=== PATIENT | male | born 1990 | race African-American/Black ===

== ENCOUNTER 2019-04-05 14:39 | Emergency (ER) | payer MEDICAID ==
[~2019-04-05] VITALS: Ht 180.3 cm; Wt 111.0 kg
[2019-04-05 14:42] VITALS: BP 123/79
--- NOTE | 2019-04-05 16:04 | NUR ---
AFTER PA EXAM AND TX, DISCHARGE PAPERS GIVEN
== END 2019-04-05 16:06 | disposition home or self-care (01) ==
LOC: ED 16:00
DX: L02.412 Cutaneous abscess of left axilla (principal)
CPT/HCPCS: 10060; 10160; 99283; 99284

== ENCOUNTER 2020-05-24 16:50 | Emergency (ER) | payer MEDICAID ==
[~2020-05-24] VITALS: Ht 180.3 cm; Wt 88.1 kg
--- NOTE | 2020-05-24 18:10 | NUR ---
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 STEADY UPON AMBULATION. NO ACUTE DISTRESS NOTED.
[2020-05-24] MEDS ORDERED: LIDOCAINE 1%-EPI 1:100K, 20ML ONE (18:45)
[2020-05-24] MEDS ORDERED: LIDOCAINE 1%-EPI 1:100K, 20ML SQ ONE (19:00)
--- NOTE | 2020-05-24 19:00 | NUR ---
REPORT GIVEN TO PARI
--- NOTE | 2020-05-24 19:08 | NUR ---
BEDSIDE REPORT FROM ISAIAH TIMMONS. PT CARE TRASNFERRED AT THIS TIME. PT CAME IN FOR "SPIDER BITES." PT CURERNTLY RESTING IN [facility], ON STOMACH WAITING FOR I/D, RESP WNL, VSS. WCTM.
[2020-05-24 19:10] VITALS: BP 122/61
--- NOTE | 2020-05-24 19:42 | NUR ---
Patient given discharge instructions and they have confirmed that they understand the instructions. Patient ambulatory with steady gait. pt states he will follow up in 2 days for packing removal and will take all abx treatment. pt NAD, VSS. pt given mothers phone number to call and update her if desired, pt left no personal belongings in room at time of DC.
== END 2020-05-24 19:45 | disposition home or self-care (01) ==
LOC: ED 19:15
DX: L02.31 Cutaneous abscess of buttock (principal); L02.416 Cutaneous abscess of left lower limb
CPT/HCPCS: 10060; 99283

== ENCOUNTER 2020-05-27 11:22 | Emergency (ER) | payer MEDICAID ==
[~2020-05-27] VITALS: Ht 180.3 cm; Wt 89.8 kg
[2020-05-27] MEDS ORDERED: SULF1TAB24 PO (12:12)
[2020-05-27] MEDS ORDERED: CEPH-376 PO (12:13)
[2020-05-27 12:51] VITALS: BP 118/74
== END 2020-05-27 12:54 | disposition home or self-care (01) ==
LOC: ED 12:30
DX: L03.317 Cellulitis of buttock (principal); L98.9 Disorder of the skin and subcutaneous tissue, unspecified
CPT/HCPCS: 99281

== ENCOUNTER 2020-09-11 18:01 | Emergency (ER) | payer MEDICAID ==
[~2020-09-11] VITALS: Ht 180.3 cm; Wt 90.0 kg
[~2020-09-11 18:01] MED LIST: CEPH-376 PO; SULF1TAB24 PO
[2020-09-11 18:03] VITALS: BP 132/80
[2020-09-11] MEDS ORDERED: CEFTRIAXONE 250 MG ONE (18:27)
[2020-09-11] MEDS ORDERED: AZITHROMYCIN 500 MG TABLET ONE (18:27)
[2020-09-11] MEDS ORDERED: CEFTRIAXONE 250 MG IM ONE (18:30)
[2020-09-11] MEDS ORDERED: AZITHROMYCIN 500 MG TABLET PO ONE (18:30)
== END 2020-09-11 18:45 | disposition home or self-care (01) ==
LOC: ED 18:34
DX: A56.01 Chlamydial cystitis and urethritis (principal); A54.01 Gonococcal cystitis and urethritis, unspecified; R00.0 Tachycardia, unspecified
CPT/HCPCS: 96372; 99283; J0696

== ENCOUNTER 2021-03-28 20:30 | Emergency (ER) | payer MEDICAID ==
[~2021-03-28] VITALS: Ht 182.9 cm; Wt 95.0 kg
[~2021-03-28 20:30] MED LIST changes: +SULF-23 PO; -SULF1TAB24 PO
[2021-03-28] MEDS ORDERED: DEXAMETHASONE 4 MG TABLET PO ONE (21:00)
[2021-03-28 22:46] VITALS: BP 125/70
--- NOTE | 2021-03-28 22:46 | NUR ---
PT DISCHARGE FROM TRIAGE. REVIEWED DC INSTRUCTIONS WITH PT, PT VERBALIZED UNDERSTANDING.
== END 2021-03-28 22:48 | disposition home or self-care (01) ==
LOC: ED 21:00
DX: J02.8 Acute pharyngitis due to other specified organisms (principal); B97.89 Other viral agents as the cause of diseases classified elsewhere
CPT/HCPCS: 87081; 87880; 99283